=== PATIENT | male | born 1950 | race Caucasian/White ===

== ENCOUNTER 2021-01-19 07:57 | Day surgery (SDC) | payer MEDICARE, OTHER ==
[~2021-01-19] VITALS: Ht 198 cm; Wt 123.0 kg
[~2021-01-19 07:57] MED LIST: CENTRUM ADULTS1 EACH PO; ETODOLAC500 MG PO; GEMFIBROZIL600 MG PO
[2021-01-19] MEDS ORDERED: DILTIAZEM 24HR180 M1 PO (08:56)
[2021-01-19] MEDS ORDERED: ELIQUIS5 MG PO (08:59)
[2021-01-19] MEDS ORDERED: ACETAMINOPHEN500 M1 PO (09:00)
--- NOTE | 2021-01-19 16:40 | NUR ---
PT. HAD LEFT TOTAL KNEE REPLACEMENT THIS DATE. PT. WILL RETURN HOME WITH SPOUSE. PT. REQUESTED [facility] TO DELIVER A ROLLING WALKER. PT SIGNED CHOICE FORM.
[2021-01-20 06:58] LABS: BASOPHIL 0.2 % (0-2); EOSINOPHIL 0.1 % (0-7); HGB 12.8 g/dl (13.2-18.0); LYMPHOCYTE 9.5 % (15-48); MCH 28.8 pg (25.0-31.0); MCHC 32.8 g/dL (32.0-36.0); MCV 87.8 fL (78.0-100.0); MONOCYTE 5.8 % (0-12); MPV 8.7 fL (6.0-9.5); NEUTROPHIL 83.8 % (41-80); NRBC 0; PLT 222 K/uL (150-400); RBC 4.44 M/uL (4.70-6.00); RDW 12.9 % (11.5-14.0); WBC 12.5 K/uL (4.0-10.5)
[2021-01-20 07:03] LABS: BUN/CREAT RATIO (CALC) 14.4 RATIO; CREATININE 0.9 mg/dL (0.67-1.17); POTASSIUM 4.2 mmol/L (3.5-5.1)
[2021-01-20] MEDS ORDERED: FEOSOL325 MG PO (08:57)
[2021-01-20] MEDS ORDERED: OXYCODONE-ACET1 EAC1 PO (08:57)
[2021-01-20] MEDS ORDERED: VENTOLIN HFA IN18 GM INH (09:00)
== END 2021-01-20 15:50 | disposition home health service (06) ==
LOC: FAS 07:57
PROVIDERS: Legal Medicine
DX: M17.12 Unilateral primary osteoarthritis, left knee (principal); M21.162 Varus deformity, not elsewhere classified, left knee; G89.18 Other acute postprocedural pain; I48.91 Unspecified atrial fibrillation; I10 Essential (primary) hypertension; J44.9 Chronic obstructive pulmonary disease, unspecified; E78.1 Pure hyperglyceridemia; G47.33 Obstructive sleep apnea (adult) (pediatric); F17.210 Nicotine dependence, cigarettes, uncomplicated; Z88.2 Allergy status to sulfonamides; Z79.01 Long term (current) use of anticoagulants; Z79.899 Other long term (current) drug therapy
CPT/HCPCS: 36415; 73560; 80048; 85025; 86850; 86900; 86901; 94010; 97116; 97161; 97165; 97535; C1713; C1776; J0171; J0697; J1100; J1170; J1885; J2250; J2270; J2405; J2550; J2704; J2795; J3010; J7120